=== PATIENT | male | born 1980 | race African-American/Black ===

== ENCOUNTER 2018-05-18 12:22 | Emergency (ER) | payer OTHER ==
[~2018-05-18] VITALS: Ht 180.3 cm; Wt 70.3 kg
[2018-05-18 12:50] VITALS: BP 134/81
--- NOTE | 2018-05-18 13:01 | PHYS DOC ---
Past Medical History Past Medical History: No Pertinent History Past Surgical History: No Surgical History Alcohol Use: Occasionally Drug Use: None Adult General Chief Complaint Chief Complaint: BLOOD IN URINE HPI HPI Patient is a 38 year old male who presents with blood in his urine. He noticed it on 3 separate episodes of urination starting this morning. Mild dysuria. Blood may be at the beginning of the urinary stream. Patient urinated for us in the emergency department did not note any blood in the urine. Denies any fever. Denies any penile discharge. Notes some left flank pain that is also new this morning. Nothing seems to make the mild discomfort better or worse. Patient has taken no pain medicines. Denies any trauma. Denies any testicular pain.[] Review of Systems Review of Systems Constitutional: Denies fever or chills [] Eyes: Denies change in visual acuity, redness, or eye pain [] HENT: Denies nasal congestion or sore throat [] Respiratory: Denies cough or shortness of breath [] Cardiovascular: No chest pain or palpitations[] GI: Denies abdominal pain, nausea, vomiting, bloody stools or diarrhea [] : See history of present illness[] Musculoskeletal: Denies back pain or joint pain [] Integument: Denies rash or skin lesions [] Neurologic: Denies headache, focal weakness or sensory changes [] Endocrine: Denies polyuria or polydipsia [] All other systems were reviewed and found to be within normal limits, except as documented in this note. Allergies Allergies Allergies Coded Allergies Type Severity Reaction Last Updated Verified No Known Drug Allergies 04/29/13 No Physical Exam Physical Exam Constitutional: Well developed, well nourished, no acute distress, non-toxic appearance. [] HENT: Normocephalic, atraumatic, bilateral external ears normal, oropharynx moist, no oral exudates, nose normal. [] Eyes: PERRLA, EOMI, conjunctiva normal, no discharge. [] Neck: Normal range of motion, no tenderness, supple, no stridor. [] Cardiovascular:Heart rate regular rhythm, no murmur [] Lungs & Thorax: Bilateral breath sounds clear to auscultation [] Abdomen: Bowel sounds normal, soft, no tenderness, no masses, no pulsatile masses. : Normal male, bilateral descended testes, he is circumcised, no testicular tenderness, no penile discharge, no lesions, no inguinal lymphadenopathy [] Skin: Warm, dry, no erythema, no rash. [] Back: No tenderness, no CVA tenderness. [] Extremities: No tenderness, no cyanosis, no clubbing, ROM intact, no edema. [] Neurologic: Alert and oriented X 3, normal motor function, normal sensory function, no focal deficits noted. [] Psychologic: Affect normal, judgement normal, mood normal. [] Current Patient Data Vital Signs Vital Signs Date Time Temp Pulse Resp B/P (MAP) Pulse Ox O2 Delivery O2 Flow Rate FiO2 05/18/18 12:50 99.0 70 16 134/81 (98) 98 Room Air 99.0 Lab Values Laboratory Tests Test 05/18/18 12:45 Urine Color Yellow Urine Clarity Clear Urine pH 6.5 Urine Specific [place] 1.015 Urine Protein Negative mg/dL (NEG-TRACE) Urine Glucose (UA) Negative mg/dL (NEG) Urine Ketones (Stick) Negative mg/dL (NEG) Urine Blood Negative (NEG) Urine Nitrite Negative (NEG) Urine Bilirubin Negative (NEG) Urine Urobilinogen Dipstick 1.0 mg/dL (0.2 mg/dL) Urine Leukocyte Esterase Negative (NEG) Urine RBC 0 /HPF (0-2) Urine WBC 0 /HPF (0-4) Urine Bacteria 0 /HPF (0-FEW) EKG EKG [] Radiology/Procedures Radiology/Procedures [] Course & Med Decision Making Course & Med Decision Making Pertinent Labs and Imaging studies reviewed. (See chart for details) ED course: Patient arrived, was placed in bed, and tolerated exam well. After the return of laboratory studies, these were discussed with the patient who voiced understanding. All questions were answered. Medical decision making: Given that the patient had hematuria and dysuria even though it is not present now along with the flank discomfort, will treat for urinary tract infection. Also GC and chlamydia are pending in the urine PCR which will not. Turned today.[] Dragon Disclaimer Dragon Disclaimer This electronic medical record was generated, in whole or in part, using a voice recognition dictation system. Departure Departure Impression: Primary Impression: Hematuria Disposition: HOME, SELF-CARE Condition: IMPROVED Referrals: NO PCP (PCP) Patient Instructions: Hematuria, Adult Additional Instructions: Follow-up with your primary care physician in 2 days. If you do not have one a list of local clinics will be provided for you. Drink plenty of fluids. Return to the ER if more blood in the urine, more discomfort with urination, or any other concerns. Scripts Phenazopyridine Hcl (PYRIDIUM) 200 Mg Tablet 200 MG PO TID for 2 Days, #6 TAB Prov: KALPESH ROWLAND DO 05/18/18 Cephalexin (CEPHALEXIN) 500 Mg Tablet 1 TAB PO TID, #30 TAB Prov: KALPESH ROWLAND DO 05/18/18 Problem Qualifiers Primary Impression: Hematuria Hematuria type: unspecified type Qualified Codes: R31.9 - Hematuria, unspecified KALPESH ROWLAND DO May 18, 2018 13:01
[2018-05-18 13:03] LABS: BILIRUBIN,URINE NEGATIVE (NEG); CLARITY,URINE CLEAR; COLOR,URINE YELLOW; NITRITE,URINE NEGATIVE (NEG); PH,URINE 6.5; PROTEIN,URINE NEGATIVE (NEG-TRACE)
[2018-05-18 13:13] LABS: BACTERIA,URINE 0 /HPF (0-FEW); RBC,URINE 0 /HPF (0-2); WBC,URINE 0 /HPF (0-4)
[2018-05-18] MEDS ORDERED: PHEN-318 PO (13:41)
[2018-05-18] MEDS ORDERED: CEPH500T PO (13:41)
== END 2018-05-18 13:47 | disposition home or self-care (01) ==
LOC: ER 12:22
DX: R31.9 Hematuria, unspecified (principal); R10.9 Unspecified abdominal pain; R30.0 Dysuria
CPT/HCPCS: 81001; 87491; 87591; 99283

== ENCOUNTER 2018-07-01 19:21 | Emergency (ER) | payer SELFPAY ==
[~2018-07-01] VITALS: Ht 179.1 cm; Wt 70.3 kg
[~2018-07-01 19:21] MED LIST: CEPH500T PO; PHEN-318 PO
[2018-07-01 19:25] VITALS: BP 159/74
[2018-07-01] MEDS ORDERED: LORazepam 1 MG TABLET PO ONE (19:30)
--- NOTE | 2018-07-01 19:45 | PHYS DOC ---
Past Medical History Past Medical History: No Pertinent History, Anxiety (CLARISA JOHNSON APRN) Past Surgical History: No Surgical History (CLARISA JOHNSON APRN) Smoking: Cigarettes Alcohol Use: Occasionally Drug Use: None, Marijuana (CLARISA JOHNSON APRN) Adult General Chief Complaint Chief Complaint: ANXIETY/PANIC ATTACK [facility] HPI Patient is a 38 year old male is brought to the emergency room via EMS for evaluation of "I had a panic attack at home". He reports was seen on the couch when he started feeling nauseated, started breathing fast and felt tingly all over. He states has had anxiety attacks in the past and this was similar. He is not currently treated with medications for anxiety. He states symptoms started resolving while he was in the ambulance, history and feel much better already. Still has some tingling in his fingertips. Reports that he smokes marijuana, last use was approximately 1 hour prior to anxiety attack. Denies chest pain (CLARISA JOHNSON APRN) Review of Systems Review of Systems Constitutional: Denies fever or chills [] Eyes: Denies change in visual acuity, redness, or eye pain [] HENT: Denies nasal congestion or sore throat [] Respiratory: REPORTS shortness of breath [] Cardiovascular: No additional information not addressed in HPI [] GI: Denies abdominal pain, nausea, vomiting, bloody stools or diarrhea [] : Denies dysuria or hematuria [] Musculoskeletal: Denies back pain or joint pain [] Integument: Denies rash or skin lesions [] Neurologic: Denies headache, focal weakness or sensory changes REPORTS ANXIETY AND TINGLING ALL OVER [] Endocrine: Denies polyuria or polydipsia [] All other systems were reviewed and found to be within normal limits, except as documented in this note. (CLARISA JOHNSON APRN) Current Medications Current Medications Current Medications Medications (Trade) Dose Ordered Sig/Orly Start Time Stop Time Status Last Admin Dose Admin Lorazepam (Ativan) 1 mg 1X ONCE 07/01/18 19:30 07/01/18 19:36 DC 07/01/18 19:58 1 MG (BASHIR BARRIGA MD) Allergies Allergies Allergies Coded Allergies Type Severity Reaction Last Updated Verified No Known Drug Allergies 04/29/13 No (BASHIR BARRIGA MD) Physical Exam Physical Exam Constitutional: Well developed, well nourished, no acute distress, non-toxic appearance. [] HENT: Normocephalic, atraumatic, bilateral external ears normal, oropharynx moist, no oral exudates, nose normal. [] Eyes: PERRLA, EOMI, conjunctiva normal, no discharge. [] Neck: Normal range of motion, no tenderness, supple, no stridor. [] Cardiovascular:Heart rate regular rhythm, no murmur [] Lungs & Thorax: Bilateral breath sounds clear to auscultation [] Abdomen: Bowel sounds normal, soft, no tenderness, no masses, no pulsatile masses. [] Skin: Warm, dry, no erythema, no rash. [] Back: No tenderness, no CVA tenderness. [] Extremities: No tenderness, no cyanosis, no clubbing, ROM intact, no edema. [] Neurologic: Alert and oriented X 3, normal motor function, normal sensory function, no focal deficits noted. [] Psychologic: Affect normal, judgement normal, mood normal, + anxious. [] (CLARISA JOHNSON APRN) Current Patient Data Vital Signs Vital Signs Date Time Temp Pulse Resp B/P (MAP) Pulse Ox O2 Delivery O2 Flow Rate FiO2 07/01/18 19:25 98.8 67 18 159/74 (102) 100 Room Air 98.8 (BASHIR BARRIGA MD) EKG EKG [] Interpretation Time: EKG read by emergency room physician rate 81 interpretation sinus rhythm, no STEMI (CLARISA JOHNSON APRN) Radiology/Procedures Radiology/Procedures [] (CLARISA JOHNSON APRN) Course & Med Decision Making Course & Med Decision Making Pertinent Labs and Imaging studies reviewed. (See chart for details) [Patient reports he is feeling better after time in emergency room and by mouth Ativan. Family members are at bedside to take patient home. He will get a follow-up with primary care doctor. Vital Signs stable, EKG sinus rhythm, stable for discharge.] (CLARISA JOHNSON APRN) Course & Med Decision Making Staff Physician Addendum: I was working in the ER during the course of this patient's visit. I was available for consultation as needed, but I was not directly involved in the care of this patient. (BASHIR BARRIGA MD) Dragon Disclaimer Dragon Disclaimer This electronic medical record was generated, in whole or in part, using a voice recognition dictation system. (CLARISA JOHNSON APRN) Departure Departure Impression: Primary Impression: Anxiety Disposition: 01 HOME, SELF-CARE Condition: STABLE Referrals: NO PCP (PCP) Patient Instructions: Anxiety and Panic Attacks, [id number] CLARISA JOHNSON APRN Jul 01, 2018 19:45 BASHIR BARRIGA MD Jul 02, 2018 04:00
--- NOTE | 2018-07-02 06:35 | EKG ---
[facility] [address] [place] [address] Test Date: 2018-07-01 Test Time: 19:47:43 Pat Name: NIK SCHULTZ Department: Room: Gender: M [employer] Supervisor: : 1980 Requested By: CLARISA JOHNSON Order Number: [id number] Reading MD: Michele Gipson Measurements Intervals [place] Rate: 81 P: 82 [place]: 156 QRS: 61 QRSD: 82 T: 49 QT: 368 QTc: 428 Interpretive Statements SINUS RHYTHM LEFT ATRIAL ABNORMALITY QRS(T) CONTOUR ABNORMALITY CONSIDER ANTEROLATERAL MYOCARDIAL DAMAGE ABNORMAL ECG Electronically Signed On 07-08-2018 11:19:03 CDT by Michele Gipson
== END 2018-07-01 20:44 | disposition home or self-care (01) ==
LOC: ER 19:21
DX: F41.9 Anxiety disorder, unspecified (principal); F17.210 Nicotine dependence, cigarettes, uncomplicated; F12.10 Cannabis abuse, uncomplicated
CPT/HCPCS: 93005; 99284

== ENCOUNTER 2020-12-01 12:06 | Emergency (ER) | payer SELFPAY ==
[~2020-12-01] VITALS: Ht 177.8 cm; Wt 64.9 kg
--- NOTE | 2020-12-01 14:43 | EKG ---
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
[2020-12-01] MEDS ORDERED: MORPHINE SULFATE 2 MG/ML INJ. IVP ONE (14:45)
[2020-12-01] MEDS ORDERED: ONDANSETRON PF 4 MG/2 ML VIAL. IVP ONE (14:45)
--- NOTE | 2020-12-01 14:49 | RAD ---
EXAMINATION: Chest radiograph. VIEWS: Single AP view of the chest COMPARISON: None INDICATION:40 years, Male, chest pain. FINDINGS: Normal cardiomediastinal silhouette. No focal consolidation. No pleural effusion or pneumothorax. No acute osseous process. IMPRESSION: No acute cardiopulmonary process. Electronically signed by: Petros Isidro DO (12/01/2020 2:46 PM) [id number]
[2020-12-01 14:59] LABS: BILIRUBIN,URINE SMALL (NEG); CLARITY,URINE CLEAR; COLOR,URINE YELLOW; NITRITE,URINE NEGATIVE (NEG); PH,URINE 5.5 (<5.0-8.0); PROTEIN,URINE NEGATIVE (NEG-TRACE)
[2020-12-01 15:00] VITALS: BP 130/79
[2020-12-01 15:03] LABS: BASO # 0.1 x10^3/uL (0.0-0.2); BASO % 1 % (0-3); EOS # 0.2 x10^3/uL (0.0-0.7); EOS % 2 % (0-3); HEMATOCRIT 47.1 % (39.0-53.0); HEMOGLOBIN 15.6 g/dL (13.0-17.5); LYMPH # 1.4 x10^3/uL (1.0-4.8); LYMPH % 22 % (24-48); MEAN CORPUSCULAR HEMOGLOBIN 31 pg (25-35); MEAN CORPUSCULAR HGB CONC 33 g/dL (31-37); MEAN CORPUSCULAR VOLUME 94 fL (79-100); MONO # 0.8 x10^3/uL (0.0-1.1); MONO % 13 % (0-9); NEUT # 3.8 x10^3/uL (1.8-7.7); NEUT % 61 % (31-73); PLATELET COUNT 215 x10^3/uL (140-400); RED BLOOD COUNT 5.03 x10^6/uL (4.30-5.70); RED CELL DISTRIBUTION WIDTH 13.6 % (11.5-14.5); WHITE BLOOD COUNT 6.2 x10^3/uL (4.0-11.0)
[2020-12-01 15:06] LABS: CREATININE 1.1 mg/dL (0.7-1.3); GFR 89.7
[2020-12-01 15:06] LABS: BACTERIA,URINE 0 /HPF (0-FEW); BARBITURATES NEG (NEG); BENZODIAZEPINES NEG (NEG); CANNABINOIDS POS (NEG); COCAINE NEG (NEG); METHADONE NEG (NEG); OPIATES POS (NEG); PHENCYCLIDINE NEG (NEG); RBC,URINE 0 /HPF (0-2); WBC,URINE 0 /HPF (0-4)
[2020-12-01 15:08] LABS: AMPHETAMINE/METHAMPHETAMINE NEG (NEG)
[2020-12-01 15:13] LABS: ALBUMIN 3.5 g/dL (3.4-5.0); MAGNESIUM 2.1 mg/dL (1.8-2.4); TOTAL BILIRUBIN 0.7 mg/dL (0.2-1.0)
[2020-12-01] MEDS ORDERED: CONTRAST GIVEN. MC PRN (15:15)
[2020-12-01] MEDS ORDERED: IOHEXOL 300 MG/ML 100ML VIAL. IV ONE (15:15)
--- NOTE | 2020-12-01 16:13 | RAD ---
EXAM: CT Abdomen and Pelvis with IV contrast CLINICAL HISTORY: Reason: abd pain / Spl. Instructions: [id number] 75ML / History: COMPARISON: CT abdomen and pelvis 10/03/2014 TECHNIQUE: Helical CT of the abdomen and pelvis was performed following the administration of intrave nous contrast. Axial, coronal and sagittal reformatted images were generated. PQRS compliance statement - One or more of the following individualized dose reduction techniques wer e utilized for this study: 1. Automated exposure control 2. Adjustment of the mA and/or kV according to patient size 3. Use of iterative reconstruction technique FINDINGS: Lower Chest: Visualized lung bases are clear Abdomen and Pelvis: The liver and gallbladder are unremarkable. Spleen is normal with a small adjacent splenule. Adrenals and pancreas are unremarkable. Normal cortical enhancement of bilateral kidneys. There is a 3 mm hyp odensity in the inferior pole of the right kidney, too small to characterize. No nephrolithiasis or h ydronephrosis. The stomach is mildly distended with ingested debris. There is fluid distention of the first through third duodenal segments with abrupt tapering of the third part of the duodenum between the SMA and aorta. The aorta and SMA is 23 degrees and sagittal planes. The remainder of the small a nd large bowel demonstrate stones of obstruction or acute inflammatory process. There is increased jenkins bmucosal fat throughout the majority of the large bowel which is a nonspecific finding and can be see n in the setting of chronic inflammatory bowel disease. The appendix is not well visualized without f ocal inflammatory changes in the right lower quadrant. There is no free air or free intra-abdominal f luid. No pathologically enlarged abdominal or pelvic lymph nodes. Abdominal and pelvic vasculature is normal in course and caliber. Urinary bladder is partially decompressed and unremarkable. Prostate gland is unremarkable. Abdominal wall is unremarkable. No acute osseous process. IMPRESSION: 1. No evidence of acute process in the abdomen or pelvis. 2. Nonspecific fluid distention of the duodenum with abrupt collapse at the third portion of the duod enum. 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 Differential also includes duodenal obstructio n, intestinal scleroderma and/or duodenal stricture. May consider follow-up with GI for consideration of gastroduodenoscopy to rule out intra-luminal causes Electronically signed by: Petros Isidro DO (12/01/2020 4:11 PM) [id number]
--- NOTE | 2020-12-01 17:09 | PHYS DOC ---
Past Medical History Past Medical History: No Pertinent History, Anxiety Past Surgical History: No Surgical History Smoking Status: Current Every Day Smoker Alcohol Use: Heavy Drug Use: None, Marijuana General Adult EDM: Chief Complaint: ABDOMINAL PAIN HPI: HPI: Patient is a 40 year old male with a history of anxiety who presents to the ED today complaining of 8 out of 10 bilateral lower abdominal pain, symptoms began 2 weeks ago. Patient describes the pain as sharp and intermittent. Denies anything specific and exacerbating or relieving the pain. He states today he had an episode of chest pain and the grandmother requested him to come to the ED. Denies any nausea, vomiting. Denies any diarrhea. Denies any chest pain right now in the ED. Review of Systems: Review of Systems: Constitutional: Denies fever or chills. [] Eyes: Denies change in visual acuity. [] HENT: Denies nasal congestion or sore throat. [] Respiratory: Denies cough or shortness of breath. [] Cardiovascular: Reports chest pain GI: Reports abdominal pain denies nausea, vomiting, bloody stools or diarrhea. [] : Denies dysuria. [] Musculoskeletal: Denies back pain or joint pain. [] Integument: Denies rash. [] Neurologic: Denies headache, focal weakness or sensory changes. [] Psychiatric: Denies depression or anxiety. [] Heart Score: C/O Chest Pain: Yes HEART Score for Chest Pain: HEART Score for Chest Pain Response (Comments) Value History Slighlty/Non-Suspicious 0 ECG Normal 0 Age < 45 0 Risk Factors No Risk Factors 0 Troponin < Normal Limit 0 Total 0 Risk Factors: Risk Factors: DM, Current or recent (<one month) smoker, HTN, HLP, family history of CAD, obesity. Risk Scores: Score 0 - 3: 2.5% MACE over next 6 weeks - Discharge Home Score 4 - 6: 20.3% MACE over next 6 weeks - Admit for Clinical Observation Score 7 - 10: 72.7% MACE over next 6 weeks - Early Invasive Strategies Current Medications: Current Medications Medications (Trade) Dose Ordered Sig/Orly Start Time Stop Time Status Last Admin Dose Admin Info (CONTRAST GIVEN -- Rx MONITORING) 1 each PRN DAILY PRN 12/01/20 15:15 12/03/20 15:14 Iohexol (Omnipaque 300 Mg/ml) 75 ml 1X ONCE 12/01/20 15:15 12/01/20 15:16 DC 12/01/20 15:16 75 ML Morphine Sulfate (Morphine Sulfate) 2 mg 1X ONCE 12/01/20 14:45 12/01/20 14:46 DC 12/01/20 14:50 2 MG Ondansetron HCl (Zofran) 4 mg 1X ONCE 12/01/20 14:45 12/01/20 14:46 DC 12/01/20 14:50 4 MG Allergies: Allergies: Allergies Coded Allergies Type Severity Reaction Last Updated Verified No Known Drug Allergies 04/29/13 No Physical Exam: PE: Constitutional: Well developed, well nourished, no acute distress, non-toxic appearance. [] HENT: Normocephalic, atraumatic, bilateral external ears normal, oropharynx moist, no oral exudates, nose normal. [] Eyes: PERRLA, EOMI, conjunctiva normal, no discharge. [] Neck: Normal range of motion, no tenderness, supple, no stridor. [] Cardiovascular:Heart rate regular rhythm, no murmur [] Lungs & Thorax: Bilateral breath sounds clear to auscultation [] Abdomen: Bowel sounds normal, soft, no tenderness, no masses, no pulsatile masses. [] Skin: Warm, dry, no erythema, no rash. [] Back: No tenderness, no CVA tenderness. [] Extremities: No tenderness, no cyanosis, no clubbing, ROM intact, no edema. [] Neurologic: Alert and oriented X 3, normal motor function, normal sensory function, no focal deficits noted. [] Psychologic: Affect normal, judgement normal, mood normal. [] Current Patient Data: Labs: Laboratory Tests Test 12/01/20 14:45 12/01/20 14:50 White Blood Count 6.2 x10^3/uL (4.0-11.0) Red Blood Count 5.03 x10^6/uL (4.30-5.70) Hemoglobin 15.6 g/dL (13.0-17.5) Hematocrit 47.1 % (39.0-53.0) Mean Corpuscular Volume 94 fL (79-100) Mean Corpuscular Hemoglobin 31 pg (25-35) Mean Corpuscular Hemoglobin Concent 33 g/dL (31-37) Red Cell Distribution Width 13.6 % (11.5-14.5) Platelet Count 215 x10^3/uL (140-400) Neutrophils (%) (Auto) 61 % (31-73) Lymphocytes (%) (Auto) 22 % (24-48) L Monocytes (%) (Auto) 13 % (0-9) H Eosinophils (%) (Auto) 2 % (0-3) Basophils (%) (Auto) 1 % (0-3) Neutrophils # (Auto) 3.8 x10^3/uL (1.8-7.7) Lymphocytes # (Auto) 1.4 x10^3/uL (1.0-4.8) Monocytes # (Auto) 0.8 x10^3/uL (0.0-1.1) Eosinophils # (Auto) 0.2 x10^3/uL (0.0-0.7) Basophils # (Auto) 0.1 x10^3/uL (0.0-0.2) Sodium Level 140 mmol/L (136-145) Potassium Level 4.0 mmol/L (3.5-5.1) Chloride Level 103 mmol/L (98-107) Carbon Dioxide Level 31 mmol/L (21-32) Anion Gap 6 (6-14) Blood Urea Nitrogen 11 mg/dL (8-26) Creatinine 1.1 mg/dL (0.7-1.3) Estimated GFR (Cockcroft-Gault) 89.7 BUN/Creatinine Ratio 10 (6-20) Glucose Level 74 mg/dL (70-99) Calcium Level 9.0 mg/dL (8.5-10.1) Magnesium Level 2.1 mg/dL (1.8-2.4) Total Bilirubin 0.7 mg/dL (0.2-1.0) Aspartate Amino Transferase (AST) 17 U/L (15-37) Alanine Aminotransferase (ALT) 21 U/L (16-63) Alkaline Phosphatase 70 U/L (46-116) Troponin I Quantitative < 0.017 ng/mL (0.000-0.055) BR-Udk-R-Type Natriuretic Peptide 37 pg/mL (0-124) Total Protein 7.0 g/dL (6.4-8.2) Albumin 3.5 g/dL (3.4-5.0) Albumin/Globulin Ratio 1.0 (1.0-1.7) Lipase 92 U/L (73-393) Urine Collection Type Unknown Urine Color Yellow Urine Clarity Clear Urine pH 5.5 (<5.0-8.0) Urine Specific [place] >=1.030 (1.000-1.030) Urine Protein Negative mg/dL (NEG-TRACE) Urine Glucose (UA) Negative mg/dL (NEG) Urine Ketones (Stick) Negative mg/dL (NEG) Urine Blood Negative (NEG) Urine Nitrite Negative (NEG) Urine Bilirubin Small (NEG) Urine Urobilinogen Dipstick 1.0 mg/dL (0.2 mg/dL) Urine Leukocyte Esterase Negative (NEG) Urine RBC 0 /HPF (0-2) Urine WBC 0 /HPF (0-4) Urine Squamous Epithelial Cells Occ /LPF Urine Bacteria 0 /HPF (0-FEW) Urine Mucus Slight /LPF Urine Opiates Screen Pos (NEG) Urine Methadone Screen Neg (NEG) Urine Barbiturates Neg (NEG) Urine Phencyclidine Screen Neg (NEG) Urine Amphetamine/Methamphetamine Neg (NEG) Urine Benzodiazepines Screen Neg (NEG) Urine Cocaine Screen Neg (NEG) Urine Cannabinoids Screen Pos (NEG) Urine Ethyl Alcohol Neg (NEG) Laboratory Tests 12/01/20 14:45 Laboratory Tests 12/01/20 14:45 Vital Signs: Vital Signs Date Time Temp Pulse Resp B/P (MAP) Pulse Ox O2 Delivery O2 Flow Rate FiO2 12/01/20 14:50 16 99 Room Air 12/01/20 13:41 98.0 69 159/74 (102) 98.0 EKG: EK interpreted by Dr. Bucio sinus rhythm heart rate 74 no STEMI [] Radiology/Procedures: Radiology/Procedures: []PROCEDURE: PORTABLE CHEST 1V EXAMINATION: Chest radiograph. VIEWS: Single AP view of the chest COMPARISON: None INDICATION:40 years, Male, chest pain. FINDINGS: Normal cardiomediastinal silhouette. No focal consolidation. No pleural effusion or pneumothorax. No acute osseous process. IMPRESSION: No acute cardiopulmonary process. Electronically signed by: Cecilia Isidro DO (12/01/2020 2:46 PM) [id number] DICTATED and SIGNED BY: CECILIA ISIDRO DO DATE: 12/01/20 [id number] ROCEDURE: CT ABD PELV W/ IV CONTRST ONLY EXAM: CT Abdomen and Pelvis with IV contrast CLINICAL HISTORY: Reason: abd pain / Spl. Instructions: [id number] 75ML / History: COMPARISON: CT abdomen and pelvis 10/03/2014 TECHNIQUE: Helical CT of the abdomen and pelvis was performed following the administration of intravenous contrast. Axial, coronal and sagittal reformatted images were generated. PQRS compliance statement - One or more of the following individualized dose reduction techniques were utilized for this study: 1. Automated exposure control 2. Adjustment of the mA and/or kV according to patient size 3. Use of iterative reconstruction technique FINDINGS: Lower Chest: Visualized lung bases are clear Abdomen and Pelvis: The liver and gallbladder are unremarkable. Spleen is normal with a small adjacent splenule. Adrenals and pancreas are unremarkable. Normal cortical enhancement of bilateral kidneys. There is a 3 mm hypodensity in the inferior pole of the right kidney, too small to characterize. No nephrolithiasis or hydronephrosis. The stomach is mildly distended with ingested debris. There is fluid distention of the first through third duodenal segments with abrupt tapering of the third part of the duodenum between the SMA and aorta. The aorta and SMA is 23 degrees and sagittal planes. The remainder of the small and large bowel demonstrate stones of obstruction or acute inflammatory process. There is increased submucosal fat throughout the majority of the large bowel which is a nonspecific finding and can be seen in the setting of chronic inflammatory bowel disease. The appendix is not well visualized without focal inflammatory changes in the right lower quadrant. There is no free air or free intra-abdominal flui d. No pathologically enlarged abdominal or pelvic lymph nodes. Abdominal and pelvic vasculature is normal in course and caliber. Urinary bladder is partially decompressed and unremarkable. Prostate gland is unremarkable. Abdominal wall is unremarkable. No acute osseous process. IMPRESSION: 1. No evidence of acute process in the abdomen or pelvis. 2. Nonspecific fluid distention of the duodenum with abrupt collapse at the third portion of the duodenum. 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 Differential also includes duodenal obstruction, intestinal scleroderma and/or duodenal stricture. May consider follow-up with GI for consideration of gastroduodenoscopy to rule out intra-luminal causes Electronically signed by: Cecilia Isidro DO (12/01/2020 4:11 PM) [id number] DICTATED and SIGNED BY: CECILIA ISIDRO DO DATE: 12/01/20 [id number] Course & Med Decision Making: Course & Med Decision Making Pertinent Labs and Imaging studies reviewed. (See chart for details) This a 40-year-old male patient presented to the ED today complaining of low abdominal pain, symptoms began 2 weeks ago. Also complaining of an episode of chest pain today. Patient has no chest pain in the ED. EKG is negative, troponin is normal, CBC CMP with no acute findings, CT of the abdomen and pelvis was negative for any acute findings, radiologist mentions nonspecific fluid distention of the duodenum with abrupt collapse at the third portion of the duodenum. 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 Differential also includes duodenal obstruction, intestinal scleroderma and/or duodenal stricture. May consider follow-up with GI for consideration of gastroduodenoscopy to rule out intra-luminal causes Patient was provided GI for follow-up as an outpatient. Dragon Disclaimer: Dragon Disclaimer: This electronic medical record was generated, in whole or in part, using a voice recognition dictation system. Departure Departure Impression: Primary Impression: Abdominal pain Qualified Codes: R10.30 - Lower abdominal pain, unspecified Additional Impression: Chest pain Qualified Codes: R07.9 - Chest pain, unspecified Disposition: HOME / SELF CARE / HOMELESS Condition: STABLE Referrals: NO PCP (PCP) ELAINE MUNOZ MD Contact his office tomorrow and set up a follow-up appointment Patient Instructions: Abdominal Pain (Nonspecific) Additional Instructions: You were evaluated in the emergency room. Your work-up was negative for any acute findings. Please contact the provided GI doctor and set up a follow-up for a colonoscopy. CARLOS PARADA AUT[employer] EMISSIONS TECHNICIAN Dec 01, 2020 17:09
== END 2020-12-01 17:19 | disposition home or self-care (01) ==
LOC: ER 12:06
DX: R10.31 Right lower quadrant pain (principal); R10.32 Left lower quadrant pain; R07.89 Other chest pain; F17.200 Nicotine dependence, unspecified, uncomplicated; F10.20 Alcohol dependence, uncomplicated; Y90.9 Presence of alcohol in blood, level not specified
CPT/HCPCS: 36415; 71045; 74177; 80053; 80307; 81001; 83690; 83735; 83880; 84484; 85025; 93005; 96374; 96375; 99285; J2270; J2405; Q9967